=== PATIENT | female | born 1980 | race Caucasian/White ===

== ENCOUNTER 2018-05-16 23:59 | Emergency (ER) | payer MEDICAID ==
[~2018-05-16] VITALS: Ht 175.3 cm; Wt 140.0 kg
[~2018-05-16 23:59] MED LIST: CYCL-1 PO
[2018-05-17 00:04] VITALS: BP 162/78
[2018-05-17] MEDS ORDERED: CEPH500C5 PO (01:43)
[2018-05-17] MEDS ORDERED: IBUP-1984 PO (01:43)
[2018-05-17] MEDS ORDERED: cephalexin 250mg capsule PO ONE (01:50)
[2018-05-17] MEDS ORDERED: HYDROcodone/acetaminophen 5mg/325mg tablet PO ONE (01:50)
== END 2018-05-17 02:02 | disposition home or self-care (01) ==
LOC: ER 05-17
DX: L03.116 Cellulitis of left lower limb (principal); G89.29 Other chronic pain; Z79.899 Other long term (current) drug therapy
CPT/HCPCS: 99283; A6449

== ENCOUNTER 2018-09-25 16:29 | Emergency (ER) | payer MEDICAID, OTHER ==
[~2018-09-25] VITALS: Ht 176.5 cm; Wt 154.4 kg
[2018-09-25 16:36] VITALS: BP 184/92
[2018-09-25 17:12] LABS: BASOPHILS % (AUTO) 0.6 % (0-1); EOSINOPHILS # (AUTO) 0.1 X10'3 (0-0.9); EOSINOPHILS % (AUTO) 2.3 % (0-6); HEMATOCRIT 38.2 % (35.0-45.0); HEMOGLOBIN 12.3 g/dl (12.0-16.0); LYMPHOCYTES # (AUTO) 1.6 X10'3 (1.1-4.8); LYMPHOCYTES % (AUTO) 27.7 % (21-51); MEAN CORPUSCULAR HEMOGLOBIN 29.1 PG (27.0-31.0); MEAN CORPUSCULAR HGB CONC 32.2 % (33.0-36.5); MEAN CORPUSCULAR VOLUME 90.2 FL (78-98); MONOCYTES # (AUTO) 0.4 X10'3 (0-0.9); MONOCYTES % (AUTO) 7.6 % (2-12); NEUTROPHILS # (AUTO) 3.6 X10'3 (1.8-7.7); NEUTROPHILS % (AUTO) 61.8 % (42-75); PLATELET COUNT 210 X10'3 (140-440); RED BLOOD COUNT 4.24 X10'6 (4.20-5.60); RED CELL DISTRIBUTION WIDTH 14.9 % (11.5-14.5); WHITE BLOOD COUNT 5.7 X10'3 (4.5-11.0)
[2018-09-25 17:14] LABS: ALANINE AMINOTRANSFERASE 73 U/L (12-78); ALBUMIN 4.2 G/DL (3.4-5.0); ALBUMIN/GLOBULIN RATIO 0.9 (1.1-1.5); ALKALINE PHOSPHATASE 111 IU/L (46-116); ANION GAP 15 (8-16); ASPARTATE AMINO TRANSFERASE 195 U/L (10-37); BILIRUBIN,TOTAL 0.5 MG/DL (0.1-1.0); BLOOD UREA NITROGEN 9 MG/DL (7-18); BUN/CREATININE RATIO 14.1 (6.6-38.0); CALCIUM 9.3 MG/DL (8.5-10.1); CHLORIDE 99 MMOL/L (99-107); CREATININE 0.64 MG/DL (0.40-0.90); GLUCOSE 128 MG/DL (70-104); SODIUM 138 MMOL/L (135-145); TOTAL CARBON DIOXIDE 24.4 MMOL/L (24-32); eGFR > 90 ML/MIN
[2018-09-25] MEDS ORDERED: ALBU6.7H INH (17:19)
[2018-09-25] MEDS ORDERED: PRED20TA PO (17:19)
[2018-09-25] MEDS ORDERED: AZIT250T2 PO (17:19)
[2018-09-25] MEDS ORDERED: ipratropium/albuterol 3ml nebule NEB ONE (17:20)
[2018-09-25 17:21] LABS: INR 1.1 INR; PARTIAL THROMBOPLASTIN TIME 27 SECONDS (22-32); PROTHROMBIN TIME 10.8 SECONDS (9.0-12.0)
== END 2018-09-25 17:34 | disposition home or self-care (01) ==
LOC: ER 16:29
DX: J45.909 Unspecified asthma, uncomplicated (principal); G89.29 Other chronic pain; E66.01 Morbid (severe) obesity due to excess calories; Z79.2 Long term (current) use of antibiotics; Z79.899 Other long term (current) drug therapy
CPT/HCPCS: 36415; 71045; 80053; 84484; 85025; 85610; 85730; 93005; 99284

== ENCOUNTER 2019-03-21 01:41 | Emergency (ER) | payer MEDICAID, OTHER ==
[~2019-03-21] VITALS: Ht 177.8 cm; Wt 147.7 kg
[~2019-03-21 01:41] MED LIST changes: +ALBU6.7H INH
[2019-03-21 01:53] VITALS: BP 167/96
== END 2019-03-21 04:23 | disposition left against medical advice (07) ==
LOC: ER 01:42
DX: R21 Rash and other nonspecific skin eruption (principal); Z53.21 Procedure and treatment not carried out due to patient leaving prior to being seen by health care provider

== ENCOUNTER → 2019-05-21 | Day surgery (SDC) | payer MEDICAID ==
[2019-05-17 11:21] LABS: BASOPHILS # (AUTO) 0.1 X10'3 (0-0.2); BASOPHILS % (AUTO) 0.8 % (0-1); EOSINOPHILS # (AUTO) 0.1 X10'3 (0-0.9); EOSINOPHILS % (AUTO) 1.3 % (0-6); LYMPHOCYTES # (AUTO) 1.4 X10'3 (1.1-4.8); LYMPHOCYTES % (AUTO) 13.2 % (21-51); MEAN CORPUSCULAR HEMOGLOBIN 31.8 PG (27.0-31.0); MEAN CORPUSCULAR HGB CONC 33.4 g/dL (33.0-36.5); MEAN CORPUSCULAR VOLUME 95.3 FL (78-98); MEAN PLATELET VOLUME 8.6 FL (7.4-10.4); MONOCYTES # (AUTO) 0.6 X10'3 (0-0.9); MONOCYTES % (AUTO) 5.8 % (2-12); NEUTROPHILS # (AUTO) 8.1 X10'3 (1.8-7.7); NEUTROPHILS % (AUTO) 78.9 % (42-75); PRE OP PLATELET COUNT 240 X10'3 (140-440); RED BLOOD COUNT 3.78 X10'6 (4.20-5.60); RED CELL DISTRIBUTION WIDTH 16.3 % (11.5-14.5)
[2019-05-17 11:27] LABS: HCG SERUM QL NEGATIVE
[2019-05-17 11:34] LABS: PRE OP INR 1.4 INR; PRE OP PROTIME 13.5 SECONDS (9.0-12.0)
[2019-05-17 11:40] LABS: ALBUMIN 3.5 G/DL (3.4-5.0); ALBUMIN/GLOBULIN RATIO 0.7 (1.1-1.5); ALKALINE PHOSPHATASE 145 IU/L (46-116); BLOOD UREA NITROGEN 4 MG/DL (7-18); BUN/CREATININE RATIO 6.9 (6.6-38.0); CALCIUM 9.4 MG/DL (8.5-10.1); CHLORIDE 101 MMOL/L (99-107); CREATININE 0.58 MG/DL (0.40-0.90); PRE OP ALT 38 U/L (30-65); PRE OP ANION GAP 9 (8-16); PRE OP BILIRUB, TOTAL 1.3 MG/DL (0.0-1.0); PRE OP GLUCOSE 119 MG/DL (70-104); PRE OP POTASSIUM 3.6 MMOL/L (3.4-5.1); PRE OP SODIUM 139 MMOL/L (135-145); TOTAL CARBON DIOXIDE 28.8 MMOL/L (24-32); TOTAL PROTEIN 8.2 G/DL (6.4-8.2); eGFR > 90 ML/MIN
[2019-05-17 11:43] LABS: PRE OP AST 169 U/L (10-37)
[2019-05-17 12:14] LABS: CLARITY,URINE CLEAR (Clear); COLOR,URINE YELLOW (Yellow); GLUCOSE, URINE NEGATIVE (Neg); KETONES,URINE NEGATIVE (Neg); LEUKOCYTE ESTERASE ,URINE NEGATIVE (Neg); NITRITES, URINE NEGATIVE (Neg); OCCULT BLOOD,URINE NEGATIVE (Neg); PROTEIN,URINE NEGATIVE (Neg)
[2019-05-17 12:16] LABS: UA COLLECTION TYPE NON-SPECIFIED
[2019-05-21] VITALS (10 sets, daily range): BP systolic 124–166; BP diastolic 72–82
[~2019-05-21] VITALS: Ht 175.3 cm; Wt 158.2 kg
[~2019-05-21] MED LIST changes: -ALBU6.7H INH; +BUPIVAcaine/PF 2.5 mg/ml (0.25%) 30ml vial ONE; +BUPIVAcaine/PF 2.5mg/ml (0.25%) 10ml vial ONE; -CYCL-1 PO; +LEVO25TA2 PO; +LIDOcaine 2% (20mg/ml) 5ml vial ONE; +acetaminophen 1,000mg/100ml IV 100 ML IV PRN; +ceFOXitin 2 GM ADDVANTGE BAG 50 ML IV ONE; +dexamethasone sod phosphate 4mg/ml inj. ONE; +famotidine 20mg tablet PO ONE; +fentaNYL /PF 50mcg/ml 5ml ampule ONE; +fentaNYL/PF 50MCG/1 ML 2ML syringe IV PRN; +glycopyrrolate 0.2mg/ml inj ONE; +hydrALAZINE 20mg/ml inj. IV PRN; +ketorolac trometh. 30mg/ml inj. IV ONE; +labetalol 20mg/4ml (5mg/ml) syringe IV ONE; +labetalol 20mg/4ml (5mg/ml) syringe IV PRN; +midazolam 2 mg/2 ml injection ONE; +morphine 4 MG/ML inj SYRINge IV PRN; +neostigmine methylsulfate 1 MG/ML 10ml vial ONE; +ondansetron/PF 4mg/2ml inj IV PRN; +ondansetron/PF 4mg/2ml inj ONE; +oxyCODONE/APAP 10/325mg tablet PO ONE; +propofol inj 20 ML IV ONE; +ringers solution, lacted 1,000 ML IV SCH; +rocuronium 10mg/ml inj IV ONE; +sevoflurane 250ml liquid IH ONE; +tranexamic acid inj. 1,000 MG in normal saline 100 ML IV ONE
[2019-05-21 07:19] LABS: PRE OP PARTIAL THROMB. TIME 34 SECONDS (22-32)
--- NOTE | 2019-05-21 10:25 | NUR ---
Received from OR via [facility] , accompanied by Anesthesiologist BRENDAN and report given by Anesthesiolgist. PATIENT WITH 3 ABDOMINAL LAP SITES PRESENT. VSS. NO DRAINAGE TO ABDOMEN. CRESENCIO HUGGER TUBE GIVEN TO PATIENT AND SET AT 32' FOR COOLING. 10L MASK ON WITH 99% SATURATIONS. MEDICATED FOR PAIN UPON ARRIVAL. Addendum: 05/21/19 at 1104 by Jose Romero RN, RN Amended: Links added.
--- NOTE | 2019-05-21 13:55 | NUR ---
ALL DC CRITERIA HAS BEEN MET. IV OUT, DENIES PAIN. ATE LUNCH, VSS. ALL DC INSTRUCTIONS GIVEN AND UNDERSTOOD. PRESCRIPTION INCLUDED. DRESSING AND INCISION SITES ARE CDI. OUT VIA WHEELCHAIR TO PERSONAL VEHICLE. Addendum: 05/21/19 at 1405 by Jose Romero RN, RN Amended: Links added.
== END | disposition home or self-care (01) ==
LOC: PAS 05:40
PROVIDERS: ATTEND Obstetrics & Gynecology
DX: D27.1 Benign neoplasm of left ovary (principal); N80.1 Endometriosis of ovary; N73.6 Female pelvic peritoneal adhesions (postinfective); I10 Essential (primary) hypertension; E03.9 Hypothyroidism, unspecified; E66.01 Morbid (severe) obesity due to excess calories; Z68.42 Body mass index [BMI] 45.0-49.9, adult; Z79.899 Other long term (current) drug therapy; Z98.890 Other specified postprocedural states; Z79.01 Long term (current) use of anticoagulants
CPT/HCPCS: 36415; 58661; 80053; 81003; 82948; 84703; 85025; 85610; 85730; 86885; 86900; 86901; 93005; C1758; J0131; J0694; J1100; J1885; J2001; J2250; J2270; J2405; J2704; J2710; J3010; J3490; J7120; S2900; A4618; A7000

== ENCOUNTER 2020-09-25 21:59 | Emergency (ER) | payer MEDICAID ==
[~2020-09-25] VITALS: Ht 175.3 cm; Wt 136.4 kg
[~2020-09-25 21:59] MED LIST changes: -BUPIVAcaine/PF 2.5 mg/ml (0.25%) 30ml vial ONE; -BUPIVAcaine/PF 2.5mg/ml (0.25%) 10ml vial ONE; -LIDOcaine 2% (20mg/ml) 5ml vial ONE; -acetaminophen 1,000mg/100ml IV 100 ML IV PRN; -ceFOXitin 2 GM ADDVANTGE BAG 50 ML IV ONE; -dexamethasone sod phosphate 4mg/ml inj. ONE; -famotidine 20mg tablet PO ONE; -fentaNYL /PF 50mcg/ml 5ml ampule ONE; -fentaNYL/PF 50MCG/1 ML 2ML syringe IV PRN; -glycopyrrolate 0.2mg/ml inj ONE; -hydrALAZINE 20mg/ml inj. IV PRN; -ketorolac trometh. 30mg/ml inj. IV ONE; -labetalol 20mg/4ml (5mg/ml) syringe IV ONE; -labetalol 20mg/4ml (5mg/ml) syringe IV PRN; -midazolam 2 mg/2 ml injection ONE; -morphine 4 MG/ML inj SYRINge IV PRN; -neostigmine methylsulfate 1 MG/ML 10ml vial ONE; -ondansetron/PF 4mg/2ml inj IV PRN; -ondansetron/PF 4mg/2ml inj ONE; -oxyCODONE/APAP 10/325mg tablet PO ONE; -propofol inj 20 ML IV ONE; -ringers solution, lacted 1,000 ML IV SCH; -rocuronium 10mg/ml inj IV ONE; -sevoflurane 250ml liquid IH ONE; -tranexamic acid inj. 1,000 MG in normal saline 100 ML IV ONE
[2020-09-25] MEDS ORDERED: vancomycin/NS 1 GM ADD-VANTAGE 250 ML IV ONE (22:40)
[2020-09-25] MEDS ORDERED: piperacillin/tazo 3.375gm/50ml 50 ML IV ONE (22:40)
[2020-09-25] MEDS ORDERED: HYDROcodone/acetaminophen 5mg/325mg tablet PO ONE (22:40)
[2020-09-25] MEDS ORDERED: normal saline 1000ML IV soln IV ONE (22:40)
[2020-09-25 23:23] LABS: CLARITY,URINE CLEAR (Clear); COLOR,URINE YELLOW (Yellow); GLUCOSE, URINE NEGATIVE (Neg); KETONES,URINE NEGATIVE (Neg); LEUKOCYTE ESTERASE ,URINE NEGATIVE (Neg); NITRITES, URINE NEGATIVE (Neg); OCCULT BLOOD,URINE TRACE-INTACT (Neg); PROTEIN,URINE NEGATIVE (Neg); UROBILINOGEN,URINE 0.2 E.U/dL (0.2-1.0)
[2020-09-25 23:24] LABS: UA COLLECTION TYPE NON-SPECIFIED
[2020-09-25 23:25] LABS: HEMATOCRIT 31.2 % (35.0-45.0); MEAN CORPUSCULAR HEMOGLOBIN 27.9 PG (27.0-31.0); WHITE BLOOD COUNT 8.3 X10'3 (4.5-11.0)
[2020-09-25 23:27] LABS: BASOPHILS # (AUTO) 0.1 X10'3 (0-0.2); BASOPHILS % (AUTO) 1.1 % (0-1); EOSINOPHILS # (AUTO) 0.2 X10'3 (0-0.9); EOSINOPHILS % (AUTO) 2.1 % (0-6); HEMOGLOBIN 10.2 g/dl (12.0-16.0); LYMPHOCYTES # (AUTO) 3.9 X10'3 (1.1-4.8); LYMPHOCYTES % (AUTO) 47.1 % (21-51); MEAN CORPUSCULAR HGB CONC 32.8 g/dL (33.0-36.5); MEAN CORPUSCULAR VOLUME 85.1 FL (78-98); MEAN PLATELET VOLUME 7.3 FL (7.4-10.4); MONOCYTES # (AUTO) 0.4 X10'3 (0-0.9); MONOCYTES % (AUTO) 5.1 % (2-12); NEUTROPHILS # (AUTO) 3.7 X10'3 (1.8-7.7); NEUTROPHILS % (AUTO) 44.6 % (42-75); PLATELET COUNT 180 X10'3 (140-440); RED BLOOD COUNT 3.67 X10'6 (4.20-5.60); RED CELL DISTRIBUTION WIDTH 15.3 % (11.5-14.5)
[2020-09-25 23:29] LABS: BACTERIA,URINE NONE SEEN /HPF (Neg); RBC,URINE 0-2 /HPF (0-2); SQUAMOUS EPITHELIAL CELL,UR FEW /LPF (FEW); WBC,URINE NONE SEEN /HPF (0-4)
[2020-09-25 23:37] LABS: URINE AMPHETAMINE SCREEN NEGATIVE (Neg); URINE BARBITUATE SCREEN NEGATIVE (Neg); URINE BENZODIAZEPINES SCREEN NEGATIVE (Neg); URINE CANNABINOID SCREEN POSITIVE (Neg); URINE COCAINE SCREEN NEGATIVE (Neg); URINE METHADONE SCREEN NEGATIVE (Neg); URINE OPIATE SCREEN POSITIVE (Neg); URINE PHENCYCLIDINE SCREEN NEGATIVE (Neg)
[2020-09-25 23:38] LABS: ALANINE AMINOTRANSFERASE 29 U/L (12-78); ALBUMIN 4.5 G/DL (3.4-5.0); ALKALINE PHOSPHATASE 141 IU/L (46-116); ANION GAP 11 (8-16); ASPARTATE AMINO TRANSFERASE 42 U/L (10-37); BILIRUBIN,TOTAL 0.6 MG/DL (0.1-1.0); BLOOD UREA NITROGEN 10 MG/DL (7-18); BUN/CREATININE RATIO 13.3 (6.6-38.0); CHLORIDE 107 MMOL/L (99-107); CREATININE 0.75 MG/DL (0.40-0.90); GLUCOSE 110 MG/DL (70-104); POTASSIUM 3.9 MMOL/L (3.5-5.1); SODIUM 146 MMOL/L (135-145); TOTAL CARBON DIOXIDE 28.1 MMOL/L (24-32); TOTAL PROTEIN 9.1 G/DL (6.4-8.2); eGFR 85 ML/MIN
[2020-09-25 23:44] LABS: ETHANOL 0.386 GM/DL (0.0-0.010)
[2020-09-25] MEDS ORDERED: HYDR-4383 PO (23:47)
[2020-09-25] MEDS ORDERED: CEPH250T PO (23:47)
[2020-09-25] MEDS ORDERED: DOXY100C76 PO (23:47)
[2020-09-26] MEDS ORDERED: HYDROcodone/acetaminophen 10/325mg tab PO ONE (00:10)
[2020-09-26] MEDS ORDERED: ketorolac trometh. 30mg/ml inj. IV ONE (00:10)
[2020-09-26 02:04] VITALS: BP 172/88
== END 2020-09-26 02:06 | disposition home or self-care (01) ==
LOC: ER 22:00
DX: L03.116 Cellulitis of left lower limb (principal); F10.129 Alcohol abuse with intoxication, unspecified; M54.9 Dorsalgia, unspecified; G89.29 Other chronic pain; Z79.899 Other long term (current) drug therapy; Y90.0 Blood alcohol level of less than 20 mg/100 ml
CPT/HCPCS: 36415; 73630; 80053; 80305; 80320; 81001; 85025; 85651; 96365; 96366; 96367; 96375; 99284; J1885; J2543; J3370; J7030; 96376

== ENCOUNTER 2020-10-03 23:13 | Emergency (ER) | payer MEDICAID ==
[~2020-10-03] VITALS: Ht 175.3 cm; Wt 131.8 kg
[~2020-10-03 23:13] MED LIST changes: +CEPH250T PO; +DOXY100C76 PO; +HYDR-4383 PO
[2020-10-03] MEDS ORDERED: CLIN-97 PO (23:39)
[2020-10-03 23:53] VITALS: BP 138/77
== END 2020-10-03 23:56 | disposition home or self-care (01) ==
LOC: ER 23:13
DX: L03.116 Cellulitis of left lower limb (principal); G89.29 Other chronic pain; Z98.890 Other specified postprocedural states; Z72.89 Other problems related to lifestyle; Z79.2 Long term (current) use of antibiotics; Z79.899 Other long term (current) drug therapy
CPT/HCPCS: 99283

== ENCOUNTER 2020-10-07 01:44 | Emergency (ER) | payer MEDICAID ==
[~2020-10-07] VITALS: Ht 175.3 cm; Wt 134.1 kg
[~2020-10-07 01:44] MED LIST changes: -CEPH250T PO; +CLIN-97 PO; -DOXY100C76 PO
[2020-10-07 01:51] VITALS: BP 151/70
[2020-10-07 03:08] LABS: ALBUMIN 4.5 G/DL (3.4-5.0); ANION GAP 10 (8-16); BLOOD UREA NITROGEN 11 MG/DL (7-18); BUN/CREATININE RATIO 13.8 (6.6-38.0); CALCIUM 9.4 MG/DL (8.5-10.1); CHLORIDE 101 MMOL/L (99-107); GLUCOSE 108 MG/DL (70-104); POTASSIUM 3.7 MMOL/L (3.5-5.1); SODIUM 138 MMOL/L (135-145); TOTAL CARBON DIOXIDE 27.5 MMOL/L (24-32); eGFR 79 ML/MIN
[2020-10-07 03:23] LABS: BASOPHILS # (AUTO) 0.1 X10'3 (0-0.2); BASOPHILS % (AUTO) 1.2 % (0-1); EOSINOPHILS # (AUTO) 0.1 X10'3 (0-0.9); EOSINOPHILS % (AUTO) 1.4 % (0-6); HEMATOCRIT 31.8 % (35.0-45.0); HEMOGLOBIN 10.4 g/dl (12.0-16.0); LYMPHOCYTES % (AUTO) 41.9 % (21-51); MEAN CORPUSCULAR HEMOGLOBIN 26.4 PG (27.0-31.0); MEAN CORPUSCULAR HGB CONC 32.7 g/dL (33.0-36.5); MEAN CORPUSCULAR VOLUME 80.9 FL (78-98); MEAN PLATELET VOLUME 7.9 FL (7.4-10.4); MONOCYTES # (AUTO) 0.6 X10'3 (0-0.9); MONOCYTES % (AUTO) 6.3 % (2-12); NEUTROPHILS # (AUTO) 4.7 X10'3 (1.8-7.7); NEUTROPHILS % (AUTO) 49.2 % (42-75); PLATELET COUNT 229 X10'3 (140-440); RED BLOOD COUNT 3.93 X10'6 (4.20-5.60); RED CELL DISTRIBUTION WIDTH 15.2 % (11.5-14.5); WHITE BLOOD COUNT 9.6 X10'3 (4.5-11.0)
[2020-10-07] MEDS ORDERED: oxyCODONE/APAP 10/325mg tablet PO ONE (03:30)
== END 2020-10-07 03:55 | disposition home or self-care (01) ==
LOC: ER 01:44
DX: G89.18 Other acute postprocedural pain (principal); G89.29 Other chronic pain; R21 Rash and other nonspecific skin eruption; Z98.890 Other specified postprocedural states; Z87.891 Personal history of nicotine dependence; Z72.89 Other problems related to lifestyle; Z79.2 Long term (current) use of antibiotics; Z79.899 Other long term (current) drug therapy
CPT/HCPCS: 36415; 73610; 80048; 85025; 99284

== ENCOUNTER 2020-10-14 02:01 | Emergency (ER) | payer MEDICAID ==
[~2020-10-14] VITALS: Ht 175.3 cm; Wt 131.8 kg
[2020-10-14 02:07] VITALS: BP 141/72
[2020-10-16] MEDS ORDERED: BACDS PO (12:40)
== END 2020-10-14 03:46 | disposition home or self-care (01) ==
LOC: ER 02:02
DX: M79.672 Pain in left foot (principal); R22.32 Localized swelling, mass and lump, left upper limb; I10 Essential (primary) hypertension; G89.29 Other chronic pain; Z89.422 Acquired absence of other left toe(s); Z87.891 Personal history of nicotine dependence; Z72.89 Other problems related to lifestyle; Z79.2 Long term (current) use of antibiotics; Z79.899 Other long term (current) drug therapy
CPT/HCPCS: 99283

== ENCOUNTER 2020-10-20 12:27 | Day surgery (SDC) | payer MEDICAID ==
[2020-10-16 13:45] LABS: BASOPHILS # (AUTO) 0.1 X10'3 (0-0.2); BASOPHILS % (AUTO) 0.7 % (0-1); EOSINOPHILS # (AUTO) 0.1 X10'3 (0-0.9); EOSINOPHILS % (AUTO) 0.8 % (0-6); LYMPHOCYTES # (AUTO) 1.5 X10'3 (1.1-4.8); LYMPHOCYTES % (AUTO) 19.5 % (21-51); MEAN CORPUSCULAR HEMOGLOBIN 25.8 PG (27.0-31.0); MEAN CORPUSCULAR HGB CONC 32.3 g/dL (33.0-36.5); MEAN CORPUSCULAR VOLUME 79.7 FL (78-98); MEAN PLATELET VOLUME 8.2 FL (7.4-10.4); MONOCYTES # (AUTO) 0.5 X10'3 (0-0.9); NEUTROPHILS # (AUTO) 5.7 X10'3 (1.8-7.7); PRE OP HEMATOCRIT 28.8 % (35.0-45.0); PRE OP PLATELET COUNT 150 X10'3 (140-440); RED BLOOD COUNT 3.61 X10'6 (4.20-5.60); RED CELL DISTRIBUTION WIDTH 15.6 % (11.5-14.5)
[2020-10-16 13:47] LABS: CLARITY,URINE SLIGHTLY CLOUDY (Clear); GLUCOSE, URINE NEGATIVE (Neg); KETONES,URINE TRACE mg/dl (Neg); LEUKOCYTE ESTERASE ,URINE NEGATIVE (Neg); NITRITES, URINE NEGATIVE (Neg); OCCULT BLOOD,URINE SMALL (Neg); PH,URINE 5.5 (4.8-8.0); PROTEIN,URINE NEGATIVE (Neg); UROBILINOGEN,URINE 0.2 E.U/dL (0.2-1.0)
[2020-10-16 13:48] LABS: PRE OP HEMOGLOBIN 9.3 g/dL (12.0-16.0)
[2020-10-16 13:50] LABS: COLOR,URINE DARK YELLOW (Yellow); UA COLLECTION TYPE CLN CATCH MIDSTREAM
[2020-10-16 13:53] LABS: MUCUS STRANDS MANY /LPF (Neg); SQUAMOUS EPITHELIAL CELL,UR MANY /LPF (FEW)
[2020-10-16 13:55] LABS: BACTERIA,URINE FEW /HPF (Neg); RBC,URINE 0-2 /HPF (0-2); TRANSITIONAL EPI CELLS,URINE FEW /HPF; WBC,URINE 0-4 /HPF (0-4)
[2020-10-16 13:57] LABS: HCG SERUM QL NEGATIVE
[2020-10-16 13:59] LABS: ALBUMIN 3.8 G/DL (3.4-5.0); ALBUMIN/GLOBULIN RATIO 0.8 (1.1-1.5); ALKALINE PHOSPHATASE 139 IU/L (46-116); BLOOD UREA NITROGEN 14 MG/DL (7-18); BUN/CREATININE RATIO 16.3 (6.6-38.0); CHLORIDE 97 MMOL/L (99-107); CREATININE 0.86 MG/DL (0.40-0.90); PRE OP ALT 21 U/L (30-65); PRE OP ANION GAP 13 (8-16); PRE OP AST 28 U/L (10-37); PRE OP BILIRUB, TOTAL 0.8 MG/DL (0.0-1.0); PRE OP GLUCOSE 94 MG/DL (70-104); PRE OP SODIUM 135 MMOL/L (135-145); TOTAL CARBON DIOXIDE 25.3 MMOL/L (24-32); TOTAL PROTEIN 8.7 G/DL (6.4-8.2); eGFR 73 ML/MIN
[~2020-10-20] VITALS: Ht 175.3 cm; Wt 132.7 kg
[2020-10-20] VITALS (10 sets, daily range): BP systolic 128–159; BP diastolic 55–88
[~2020-10-20 12:27] MED LIST changes: +BACDS PO; -CLIN-97 PO; -HYDR-4383 PO; -LEVO25TA2 PO; +LIDOcaine 2% 5ml jelly ONE; +ceFAZolin inj. 3,000 MG in normal saline 100ml IV soln 100 ML IV ONE; +famotidine 20mg tablet PO ONE; +ringers solution, lacted 1,000 ML IV SCH
[2020-10-20] MEDS ORDERED: HYDROcodone/acetaminophen 5mg/325mg tablet PO ONE (13:40)
[2020-10-20] MEDS ORDERED: propofol inj 20 ML IV ONE (14:21)
[2020-10-20] MEDS ORDERED: fentaNYL/PF 50MCG/1 ML 2ML syringe ONE (14:21)
[2020-10-20] MEDS ORDERED: midazolam 2 mg/2 ml injection ONE (14:21)
[2020-10-20] MEDS ORDERED: povidone-iodine 10% topical ointment 28.4gm TP ONE (14:35)
[2020-10-20] MEDS ORDERED: BUPIVAcaine/PF 2.5 mg/ml (0.25%) 30ml vial ONE (14:35)
[2020-10-20] MEDS ORDERED: vancomycin 1,000mg inj ONE ×2 (15:09→15:32)
[2020-10-20] MEDS ORDERED: proCHLORperazine 10 MG/2 ml inj IV PRN (15:15)
[2020-10-20] MEDS ORDERED: ondansetron/PF 4mg/2ml inj IV PRN (15:15)
[2020-10-20] MEDS ORDERED: meperidine/PF 25mg/ml syringe IV PRN ×2 (15:15)
[2020-10-20] MEDS ORDERED: morphine 2 MG/ML inj. syringe IV PRN (15:15)
[2020-10-20] MEDS ORDERED: ringers solution, lacted 1,000 ML IV SCH (15:15)
--- NOTE | 2020-10-20 15:51 | NUR ---
Received from OR via [facility] , accompanied by Anesthesiologist EKATERINA and report given by Anesthesiolgist. PATIENT WITH 20G PIV IN LEFT UE RUNNING LR AT 100. ESXPERIENCEING MUCH PAIN. MEDICATED UPON ARRIVAL ..WILL CONTINUE TO ASSESS. LEFT ANKLE IN PACO BANDAGE WITH NO DRAINAGE PRESENT. + CAP REFILL. Addendum: 10/20/20 at 1631 by Jose Romero RN, RN Amended: Links added.
[2020-10-20] MEDS: meperidine/PF 25mg/ml syringe IV PRN ×2 (16:02→17:02)
[2020-10-20] MEDS: morphine 4 MG/ML inj SYRINge IV PRN ×2 (16:10→16:15)
[2020-10-20] MEDS ORDERED: acetaminophen 1,000mg/100ml IV 100 ML IV PRN (16:20)
[2020-10-20] MEDS ORDERED: HYDROmorphone/PF 0.2 MG/ML SYRINGE IV PRN (16:20)
[2020-10-20] MEDS: HYDROmorphone/PF 0.2 MG/ML SYRINGE IV PRN ×2 (16:26→16:47)
[2020-10-20] MEDS ORDERED: HYDROcodone/acetaminophen 10/325mg tab PO ONE (17:00)
--- NOTE | 2020-10-20 17:11 | NUR ---
I HAVE REVIEWED D/C INSTRUCTIONS WITH PATIENT AND FAMILY AND THEY HAVE VERBALIZED UNDERSTANDING. PATIENT D/C HOME WITH ALL BELONGINGS AND FAMILY GAVE TRANSPORT HOME. PATIENT AGREES THAT PAIN MEDS ORALLY AND ELEVATION WILL CONTINUE TO ASSIST HER AT HOME FOR PAIN RELIEF. MD GUTIERREZ CONFIRMED WITH DR WHITFIELD THAT MEDS HAVE BEEN CALLED INTO [facility] ON [address]. VSS. ASSISTED WITH DRESSING BY ELBA WAN, PIVOTED NWB TO WC TO TOILET, VOIDED AND PATIENT TAKEN HOME BY LENA. VSS. NO DRAINAGE PRESENT ON DRESSINGS. Addendum: 10/20/20 at 1740 by Jose Dietrich - ELBA ARREOLA Amended: Links added.
== END 2020-10-20 17:11 | disposition home or self-care (01) ==
LOC: PAS 12:27
PROVIDERS: ATTEND Podiatrist Foot & Ankle Surgery
DX: T84.7XXA Infection and inflammatory reaction due to other internal orthopedic prosthetic devices, implants and grafts, initial encounter (principal); I10 Essential (primary) hypertension; G89.29 Other chronic pain; E66.01 Morbid (severe) obesity due to excess calories; Z68.41 Body mass index [BMI] 40.0-44.9, adult; D64.9 Anemia, unspecified; Z72.89 Other problems related to lifestyle; Z87.891 Personal history of nicotine dependence; Z98.890 Other specified postprocedural states; Z86.19 Personal history of other infectious and parasitic diseases; Z79.899 Other long term (current) drug therapy; Z20.822 Contact with and (suspected) exposure to COVID-19; Y83.8 Other surgical procedures as the cause of abnormal reaction of the patient, or of later complication, without mention of misadventure at the time of the procedure; Y92.89 Other specified places as the place of occurrence of the external cause
CPT/HCPCS: 20680; 36415; 73620; 76000; 80053; 81001; 82948; 84703; 85025; 87070; 87075; 87077; 87102; 87186; 87635; A6223; J0690; J1170; J2175; J2250; J2270; J2704; J3010; J3370; J3490; A4215; A4618; A6449; A7000; J7120

== ENCOUNTER 2024-03-15 14:57 | Outpatient (CLI) | payer MEDICARE, MEDICAID ==
[~2024-03-15 14:57] MED LIST changes: -BACDS PO; -LIDOcaine 2% 5ml jelly ONE; +SULF1TAB45 PO; -ceFAZolin inj. 3,000 MG in normal saline 100ml IV soln 100 ML IV ONE; -famotidine 20mg tablet PO ONE; -ringers solution, lacted 1,000 ML IV SCH
== END 2024-03-15 23:59 | disposition home or self-care (01) ==
LOC: MRI 14:57
PROVIDERS: ATTEND Family Medicine
DX: R56.9 Unspecified convulsions (principal); Z74.09 Other reduced mobility
CPT/HCPCS: 70551